=== PATIENT | male | born 1930 | race Caucasian/White ===

== ENCOUNTER 2016-10-26 11:37 | Emergency (ER) | payer BC ==
[~2016-10-26 11:37] MED LIST: ADVIL PO; ASAB PO; CENTRUM TAB1 TAB PO; COSAMIN DS1 TAB PO; DILACOR X2 PO; DILT-XR180 MG PO; DURAFLEX PO; GLUCCHONDR PO; GLUCOSAMINE CHOND PO; HALF81 PO; IMDUR30 PO; IMDUR60 PO; IRON325 MG PO; ISOSORB DIN30 MG PO; KDUR20 PO; KLOR-CON M2020 MEQ PO; L40 PO; LIPITOR40 PO; LORT7 PO; LYRICA100 MG PO; METPAKSF PO; MULTIPLE VIT PO; MULTIVIT/MIN PO; NORV25 PO; PLAVIX PO; PRAVAC PO; PRAVACHOL40 MG PO; PRILOSEC OTC20 MG PO; PRIN10 PO; PROTONIX PO; PT UNABLE TO RECALL; RESTORIL30 MG PO; SUCR PO; TAZTIA X3 PO; TAZTIA XT PO; TYLENOL PM PO; VITAMIN D1000 UNI1 PO; VITAMIN D31000 UNIT PO; ZOL50 PO
[2016-10-26 11:51] LABS: BASOPHILS 0.3 %; BASOPHILS ABSOLUTE 0.02 10/3/uL (0.0-0.16); EOSINOPHILS 2.4 %; EOSINOPHILS ABSOLUTE 0.14 10/3/uL (0.0-0.53); ER CBC TAT 0 Hrs 05 Mins; HEMATOCRIT 40.3 % (40.0-51.0); HEMOGLOBIN 13.7 g/dL (13.6-17.8); IMMATURE GRANULOCYTES 0.3 %; IMMATURE GRANULOCYTES ABSOLUTE 0.02 10/3/uL (0.0-0.11); LYMPHOCYTES 23.5 %; LYMPHOCYTES ABSOLUTE 1.39 10/3/uL (0.67-4.30); MANUAL DIFF NO %; MEAN CORPUSCULAR VOLUME 91.2 fL (80-100); MEAN PLATELET VOLUME 10.7 fL (9.2-13.0); MONOCYTES 11.5 %; MONOCYTES ABSOLUTE 0.68 10/3/uL (0.21-1.20); NEUTROPHILS ABSOLUTE 3.67 10/3/uL (2.02-8.40); PLATELET COUNT 65 10/3/uL (150-400); RBC DISTRIBUTION WIDTH 14.5 % (12.0-16.0); RED CELL COUNT 4.42 10/6/uL (4.7-6.1); WHITE BLOOD CELLS 5.9 10/3/uL (4.5-10.5)
[2016-10-26 11:57] LABS: INTERNATIONAL NORMAL RATI 1.4 UNITS (-); PARTIAL THROMBO TIME 37.4 SEC (22.5-37.2); PROTIME (NOT ORD) 16.7 SEC (12.0-14.5)
[2016-10-26 12:07] LABS: BUN (BLOOD UREA NITROGEN) 22 MG/DL (6-23); CALCIUM, SERUM 8.8 MG/DL (8.5-10.4); CHEST PAIN PROFILE TAT 0 Hrs 21 Mins; CHLORIDE, SERUM 110 MMOL/L (96-112); CO2 (CARBON DIOXIDE) 30 MMOL/L (24-34); CREATININE 0.91 MG/DL (0.70-1.30); GFR AFRICAN AMERICAN 88 ML/MIN (>=60); GFR NON AFRICAN AMERICAN 76 ML/MIN (>=60); GLUCOSE, SERUM 72 MG/DL (60-99); POTASSIUM, SERUM 4.3 MMOL/L (3.5-5.3); SODIUM, SERUM 143 MMOL/L (135-148); TROPONIN I 0.02 NG/ML (<0.05)
[2016-10-26 12:20] LABS: PLATELET ESTIMATE DEC (ADEQUATE); RBC MORPHOLOGY NORM (NORMAL)
== END 2016-10-26 15:48 | disposition home or self-care (01) ==
LOC: ER 11:37
PROVIDERS: Emergency Medicine
DX: R07.89 Other chest pain (principal); I25.10 Atherosclerotic heart disease of native coronary artery without angina pectoris; Z95.1 Presence of aortocoronary bypass graft; Z87.891 Personal history of nicotine dependence; Z79.82 Long term (current) use of aspirin; Z79.899 Other long term (current) drug therapy
CPT/HCPCS: 71020; 80048; 83735; 84484; 85025; 85610; 85730; 93005; 99285